=== PATIENT | male | born 1950 | race Caucasian/White ===

== ENCOUNTER → 2016-08-29 | Outpatient (CLI) | payer MEDICARE ==
--- NOTE | 2016-08-29 08:39 | US ---
EXAMINATION TYPE: US gallbladder DATE OF EXAM: 08/29/2016 COMPARISON: NONE CLINICAL HISTORY: 66-year-old male R10.13 RUQ AND LUQ ABD PAIN. TECHNIQUE: Multiple sonographic images of the right upper quadrant are obtained. FINDINGS: Liver Length: 13.3 cm Gallbladder Wall: 0.3 cm CBD: 0.3 cm Right Kidney: 10.9 x 4.5 x 5.3 cm Pancreas: Obscured by bowel gas Liver: no masses seen Gallbladder: wnl Evidence for sonographic Jennings's sign: no CBD: wnl Right Kidney: inferior pole obscured by bowel gas. No hydronephrosis. IMPRESSION: Suboptimal visualization of the pancreas. Otherwise, unremarkable sonographic examination of the righ t upper quadrant.
== END | disposition home or self-care (01) ==
LOC: RADUSWWP 07:33
PROVIDERS: ATTEND Internal Medicine
DX: R10.11 Right upper quadrant pain (principal); R10.13 Epigastric pain; R10.12 Left upper quadrant pain
CPT/HCPCS: 76705